=== PATIENT | female | born 1965 | race Caucasian/White ===

== ENCOUNTER → 2020-10-07 08:17 | Outpatient (CLI) | payer BC, SELFPAY ==
[2020-08-14 08:51] VITALS: BMI 20.1
--- NOTE | 2020-10-07 09:38 | NEURO ---
NCS and/or EMG Patient Report Ordering Doctor: Missael Jang DATE OF SERVICE: 10/07/20 Indication: Intermittent numbness in the soles of the feet. The right side is more significantly affected than the left. Symptoms worsen with weightbearing and are relieved when recumbent. Evaluate for sacral radiculopathy. Findings: Nerve conduction studies were performed in the right and left lower extremities. The right peroneal motor study recording the extensor digitorum brevis showed a normal amplitude, normal distal latency and normal conduction velocity. No conduction block or focal slowing was present across the fibular neck. The right tibial motor study recording the abductor hallucis brevis showed a normal amplitude, normal distal latency and normal conduction velocity. Right sural sensory response showed a normal amplitude and conduction velocity. Right superficial peroneal sensory response showed a normal amplitude and conduction velocity. Right medial plantar sensory response showed a normal amplitude and conduction velocity. The left peroneal motor study recording the extensor digitorum brevis showed a normal amplitude, normal distal latency and normal conduction velocity. No conduction block or focal slowing was present across the fibular neck. The left tibial motor study recording the abductor hallucis brevis showed a normal amplitude, normal distal latency and normal conduction velocity. Left sural sensory response showed a normal amplitude and conduction velocity. Left superficial peroneal sensory response showed a normal amplitude and conduction velocity. Left heel plantar sensory response showed a normal amplitude and conduction velocity. Needle EMG of the right (more symptomatic) lower extremity and lumbar paraspinal muscles was performed. No denervation was present in any muscle. All motor unit morphology, activation and recruitment patterns were normal. Impression: This is a normal study. There is no electrophysiologic evidence of peripheral polyneuropathy in either the right or left lower extremity. There is no electrophysiologic evidence of lumbosacral radiculopathy in the right lower extremity. Please note: the electrodiagnosis of radiculopathy is made on the basis of excluding peripheral nerve lesions on nerve conduction studies and the needle EMG demonstrating denervation and/or reinnervation in the distribution of one or more nerve roots (i.e., acute and/or chronic axonal loss). Thus, electrodiagnostic studies are insensitive in detecting radiculopathy in the absence of axonal loss (e.g., in the setting of compression resulting in intermittent ischemia or mechanical deformation; or demyelination without axonal loss). Thus, clinical correlation is required in the interpretation of this negative electrodiagnostic study for radiculopathy. Keon Richardson D.O.
== END ==
PROVIDERS: PCP Family Medicine; Referring Provider Chiropractor; Visit Provider Chiropractor
DX: M54.16 Radiculopathy, lumbar region (principal)
CPT/HCPCS: 95886; 95911

== ENCOUNTER → 2021-01-10 08:25 | Outpatient (CLI) | payer BC, SELFPAY ==
[2021-01-09 08:09] VITALS: BMI 21.2
[2021-01-10 08:49] LABS: Hematocrit 45.1 % (37-47); Hemoglobin 14.8 g/dL (12.0-15.0); Mean Corp Hgb Conc 32.8 g/dL (32-36); Mean Corpuscular Hgb 29.6 pg (27.0-32.0); Mean Corpuscular Volume 90.2 fL (81-99); Mean Platelet Vol. 10.9 fl (6.2-12.0); Platelet Count 358 K/mm3 (150-450); RBC Distribution Width CV 12.5 % (11.6-14.6); RBC Distribution Width SD 41.1 fl (35.1-43.9)
[2021-01-10 09:25] LABS: Vitamin B12 943 pg/mL (211-911)
[2021-01-10 09:35] LABS: ALB/GLOB Ratio 1.2 RATIO (0.9-2.4); AST(SGOT) 29 U/L (15-37); Alanine Aminotransfer ALT/SGPT 49 U/L (13-56); Albumin, Serum 4.2 g/dL (3.2-5.0); Alkaline Phosphatase 133 U/L (45-117); Anion Gap 4 (5-15); BUN 12 mg/dL (7-18); Calcium,Total 9.4 mg/dL (8.5-10.1); Chloride 105 mmol/L (98-107); Creatinine, Serum 0.67 mg/dL (0.55-1.02); EST Glomerular Filtration Rate 98 mL/min (>60); Est Glom Filt Rate - Afr Amer 119 mL/min (>60); Globulin 3.5 g/dL (2.2-4.2); Glucose 95 mg/dL (74-106); Potassium 3.7 mmol/L (3.5-5.1); Protein, Total 7.7 g/dL (6.4-8.2); Sodium Level 140 mmol/L (136-145); Thyroid Stim Hormone (TSH) 2.91 uIU/mL (0.358-3.74)
[2021-01-11 16:08] LABS: Free Kappa Light Chains 11.4 mg/L (3.3-19.4); Free Lambda Light Chains 14.7 mg/L (5.7-26.3)
== END ==
PROVIDERS: PCP Family Medicine; Referring Provider Psychiatry & Neurology Neurology; Visit Provider Psychiatry & Neurology Neurology
DX: G62.9 Polyneuropathy, unspecified (principal)
CPT/HCPCS: 36415; 80053; 82607; 82746; 83883; 84443; 85027

== ENCOUNTER 2022-02-25 09:37 | Outpatient (CLI) | payer BC, SELFPAY ==
[2022-02-25 11:03] LABS: Cholesterol 229 mg/dL (200); High Density Lipoprotein 67 mg/dL; Thyroid Stim Hormone (TSH) 2.72 uIU/mL (0.358-3.74); Triglycerides 98 mg/dL; Very Low Density Lipoprotein 20 mg/dL (5-40)
[2022-02-25 11:09] LABS: Vitamin D,25 Hydroxy 41.6 ng/mL
== END 2022-02-25 23:59 | disposition home or self-care (01) ==
LOC: MFPLAB 09:39
PROVIDERS: PCP Family Medicine; Referring Provider Family Medicine; Visit Provider Family Medicine
DX: Z13.220 Encounter for screening for lipoid disorders (principal); Z13.29 Encounter for screening for other suspected endocrine disorder; Z13.21 Encounter for screening for nutritional disorder
CPT/HCPCS: 36415; 80061; 82306; 84443

== ENCOUNTER 2022-04-08 08:22 | Day surgery (SDC) | payer BC, SELFPAY ==
[2022-04-08] VITALS (7 sets, daily range): BP systolic 97–118; BP diastolic 64–76; PULSE 61–80; RESP 12–18; TEMP 36–36.4; O2SAT 97–100; BMI 20.5
[2022-04-08] MEDS: Lactated Ringers 1,000 ML 15 ML IV (08:55)
--- NOTE | 2022-04-08 08:55 | HP.PCM_ITS ---
HPI - General HPI Narrative LINSEY YANCEY, is a 56 F who presents for a screening colonoscopy. Patient never had a previous colonoscopy. Denies any family history of colon cancer. Patient has bowel moods daily denies any blood, denies any chronic abdominal pain/nausea/vomiting/reflux. [facility] Medical History (Updated 04/06/22 @ 14:43 by Mary Beth Agiurre) Alcohol use Anxiety and depression Back pain Chronic radicular pain of lower back Depression Neuropathy Non-smoker Polyneuropathy, unspecified Post-menopausal Wears contact lenses Wears glasses Home Medications Collagen 1 cap PO DAILY 01/09/21 [History Last Taken Unknown] calcium carbonate 500 mg calcium (1,250 mg) tablet 500 mg PO DAILY 01/09/21 [History Last Taken Unknown] cholecalciferol (vitamin D3) 50 mcg (2,000 unit) capsule 50 mcg PO DAILY 01/09/21 [History Last Taken Unknown] fluticasone propionate 50 mcg/actuation nasal spray,suspension 2 spray INTRANASAL DAILY PRN 01/09/21 [History Last Taken Unknown] omega-3 fatty acids-fish oil 1 cap PO DAILY 06/25/21 [History Last Taken Unknown] duloxetine 30 mg capsule,delayed release 30 mg PO BID #180 cap 03/03/22 [Rx Last Taken Unknown] Allergy/AdvReac Type Severity Reaction Status Date / Time No Known Allergies Allergy Verified 04/08/22 09:02 Family History Grandmother CVA (cerebral vascular accident) Grandfather Alzheimer's dementia Mother Brain tumor Surgical History History of bilateral oophorectomy Social History (Updated 03/03/22 @ 09:33 by Deyanira Rand) Smoking Status: Never smoker Electronic Cigarette Use: not used second hand exposure: No alcohol intake: current alcohol intake frequency: a few times a month Alcohol type: wine substance use type: does not use Past Medical/Surgical History Planned Operation Planned Operative Procedure/s: COLONOSCOPY Previous Hospitalizations/Surgeries HX Hospitalizations: No Any Problems With Anesthesia: Yes (HARD TIME WAKING) You/Your Family Experience Fever (Hyperthermia) With Anes: No Cholinesterase deficiency: No Cardiovascular Hx Hypertension: No Respiratory Hx Sleep Apnea: No Hx Respiratory Tract Infection/Cold (presently): No Do You Snore Loudly (louder than talking or can be heard): No Do You Often Feel Tired/ Fatigued/ Sleepy Dring Daytime?: No Has Anyone Observed You Stop Breathing During Sleep?: No Result (for STOP score): Negative Smoking Status: Never smoker Neurological Does patient have nerve stimulator: No Allergies No Known Allergies Allergy (Verified 04/08/22 09:02) Discharge Is Pt Admitted From a Residential, or a [facility]: No After D/C, Where Do you Plan to Go: Return Home Physical Exam Const alert, oriented x3 and no apparent distress HEENT normocephalic and head/scalp atraumatic Resp normal respiratory effort Cardio regular rate GI soft to palpation and non-tender; Negative for non-distended Palpation: Negative for guarding Extremity no clubbing, cyanosis or edema Neuro CN's II-XII intact bilaterally Psych mental status grossly normal Assessment & Plan Assessment/Plan (1) Encounter for screening for malignant neoplasm of colon: Procedure Criteria Type of Procedure Procedure Type: Elective Elective Risks - COVID COVID Risk Discussion: The surgeon/proceduralist and patient have discussed in detail the risk of exposure to and/or potential harm posed by the COVID-19 virus with having a surgery/procedure at this time versus the risk of delaying the surgery/procedure. It is not possible to know either the risk of delaying the surgery or procedure or chance of getting an infection with perfect accuracy, but a joint decision was made between the patient and the surgeon/proceduralist to proceed at this time with the scheduled surgery/procedure as indicated on the consent form. Surgery Risks - Colonoscopy Risks Include but are not Limited To: Risks include but are not limited to: Bleeding, perforation requiring further surgery, inability to complete colonoscopy requiring barium enema.
--- NOTE | 2022-04-08 10:07 | OP.COLON_ITS ---
Patient Name: Landy Villafana Procedure Date: 04/08/2022 9:35 AM Date of : 1965 Age: 56 Procedure: Colonoscopy Indications: Screening for colorectal malignant neoplasm Providers: Yina Oakes MD Medicines: Monitored Anesthesia Care Patient Profile: This is a 56 year old female. Last Colonoscopy: none. The patient's first colonoscopy is today. Complications: No immediate complications. Procedure: Pre-Anesthesia Assessment: - Prior to the procedure, a History and Physical was performed, and patient medications and allergies were reviewed. The patient's tolerance of previous anesthesia was also reviewed. The risks and benefits of the procedure and the sedation options and risks were discussed with the patient. All questions were answered, and informed consent was obtained. Prior Anticoagulants: The patient has taken no previous anticoagulant or antiplatelet agents. ASA Grade Assessment: Per anesthesia. After reviewing the risks and benefits, the patient was deemed in satisfactory condition to undergo the procedure. After I obtained informed consent, the scope was passed under direct vision. Throughout the procedure, the patient's blood pressure, pulse, and oxygen saturations were monitored continuously. The colonoscope was introduced through the anus and advanced to the cecum, identified by the appendiceal orifice, ileocecal valve and palpation. The colonoscopy was performed without difficulty. The patient tolerated the procedure well. The quality of the bowel preparation was good. Scope In: 9:45:30 AM Scope Withdrawal Time 0 hours 7 minutes 41 seconds Scope Out: 10:02:47 AM Total Procedure Duration Time 0 hours 17 minutes 17 seconds Findings: The perianal and digital rectal examinations were normal. The entire examined colon appeared normal on direct and retroflexion views. Impression: - The entire examined colon is normal on direct and retroflexion views. - No specimens collected. Recommendation: - Discharge patient to home. - Resume previous diet. - Continue present medications. - Repeat colonoscopy in 10 years for screening purposes. Procedure Code(s): --- Professional --- G0121, PT, Colorectal cancer screening; colonoscopy on individual not meeting criteria for high risk Diagnosis Code(s): --- Professional --- Z12.11, Encounter for screening for malignant neoplasm of colon CPT copyright 2017 [employer]. All rights reserved. The codes documented in this report are preliminary and upon hog operator review may be revised to meet current compliance requirements. MD Yina Boateng MD 04/08/2022 10:06:49 AM This report has been signed electronically. Number of Addenda: 0 Note Initiated On: 04/08/2022 9:35 AM
--- NOTE | 2022-04-08 10:07 | OP.CCLET_ITS ---
04/08/2022 Mahendra Montelongo [address] [place] [address] Re : Colonoscopy procedure for Landy Villafana Dear Dr. Montelongo This procedure was performed on Friday, April 08, 2022. My impressions and recommendations are as follows: Impressions : - The entire examined colon is normal on direct and retroflexion views. - No specimens collected. Recommendations : - Discharge patient to home. - Resume previous diet. - Continue present medications. - Repeat colonoscopy in 10 years for screening purposes. My findings are described in the full procedure note, which is enclosed. If I can be of further assistance, please feel free to contact me at Doctor phone number(s): , Work: . Sincerely, MD Yina Boateng MD 04/08/2022 10:06:49 AM This report has been signed electronically.
== END 2022-04-08 10:46 | disposition home or self-care (01) ==
LOC: EN 08:25 → AC 08:26
PROVIDERS: PCP Family Medicine; Referring Provider Family Medicine; Visit Provider Surgery
PROC: 0DJD8ZZ Inspection of Lower Intestinal Tract, Via Natural or Artificial Opening Endoscopic (ICD-10-PCS; CPT 45378; principal; 2022-04-08 09:40)
DX: Z12.11 Encounter for screening for malignant neoplasm of colon (principal)
CPT/HCPCS: 45378; J7120; J2405

== ENCOUNTER → 2022-08-31 | Outpatient (CLI) | payer BC, SELFPAY ==
[2022-08-31 18:16] LABS: Hemoglobin 13.4 g/dL (12.0-15.0); Mean Corp Hgb Conc 31.9 g/dL (32-36); Mean Corpuscular Hgb 29.5 pg (27.0-32.0); Mean Corpuscular Volume 92.3 fL (81-99); Mean Platelet Vol. 12.1 fl (6.2-12.0); Platelet Count 392 K/mm3 (150-450); RBC Distribution Width SD 43.8 fl (35.1-43.9); Red Blood Count 4.55 M/mm3 (4.2-5.4)
[2022-08-31 18:21] LABS: Anion Gap 7 (5-15); BUN 11 mg/dL (7-18); BUN/Creat Ratio 16.2 RATIO (10-20); Calcium,Total 9.5 mg/dL (8.5-10.1); Chloride 104 mmol/L (98-107); Creatinine, Serum 0.68 mg/dL (0.55-1.02); EST Glomerular Filtration Rate 95 mL/min (>60); Est Glom Filt Rate - Afr Amer 115 mL/min (>60); Glucose 85 mg/dL (74-106); Potassium 3.8 mmol/L (3.5-5.1); Sodium Level 139 mmol/L (136-145)
[2022-08-31 18:29] LABS: International Normalized Ratio 1.1; Prothrombin Time (Protime)PT. 13.6 SECONDS (11.7-14.9)
[2022-08-31 18:30] LABS: Partial Thromboplast Time 38.9 Seconds (24.1-36.2)
== END | disposition home or self-care (01) ==
LOC: MFPLAB 11:43
PROVIDERS: PCP Family Medicine; Visit Provider Family Medicine
DX: Z01.818 Encounter for other preprocedural examination (principal)
CPT/HCPCS: 36415; 80048; 85027; 85610; 85730

== ENCOUNTER → 2025-09-03 | Outpatient (CLI) | payer BC, SELFPAY ==
[2025-09-07 15:09] LABS: HPV APTIMA, High Risk Negative (Negative)
== END | disposition home or self-care (01) ==
LOC: LABSPEC 16:21
PROVIDERS: PCP Family Medicine; Visit Provider Obstetrics & Gynecology
DX: Z12.4 Encounter for screening for malignant neoplasm of cervix (principal)
CPT/HCPCS: 87624; 88175; G0145